=== PATIENT | male | born 1970 | race Two or more races ===

== ENCOUNTER 2020-07-07 11:41 | Outpatient (CLI) | payer BC | END 2020-07-07 23:59 | disposition home or self-care (01) | LOC: MRI 11:41 | DX: M19.011 Primary osteoarthritis, right shoulder (principal); M62.50 Muscle wasting and atrophy, not elsewhere classified, unspecified site; M94.211 Chondromalacia, right shoulder; M25.711 Osteophyte, right shoulder | CPT/HCPCS: 73221-TC ==